=== PATIENT | female | born 1925 | race Caucasian/White ===

== ENCOUNTER 2017-02-17 11:48 | Emergency (ER) | payer OTHER ==
[~2017-02-17] VITALS: Ht 167.6 cm; Wt 54.4 kg
[~2017-02-17 11:48] MED LIST: ASPIRIN81 M4 PO; AZOR 5-20 MG T1 EACH PO; CRESTOR10 M1 PO; DILAUDID2 MG PO; DORZOLAMIDE-TIM10 ML OPH; IBU-DROPS50 MG/1.25 PO; LUMIGAN2.5 ML OPH; METOPROLOL TART50 M1 PO; PERCOCET 5-3251 EACH PO; ZOFRAN 4 MG TABL4 MG PO
--- NOTE | 2017-02-17 12:00 | ED NECK/BACK PAIN COMPLAINT ---
History of Present Illness General Chief Complaint: Low Back Pain/Injury Stated Complaint: BACK PAIN Source: patient, family, old records Exam Limitations: no limitations Vital Signs & Intake/Output Vital Signs & Intake/Output Vital Signs Date Time Temp Pulse Resp B/P B/P Pulse O2 O2 Flow FiO2 Mean Ox Delivery Rate 02/17 1415 88 16 154/78 98 Room Air 02/17 1154 98.6 90 18 172/78 98 Room Air Allergies Coded Allergies: Penicillins (Intermediate, HIVES 04/30/16) Reconcile Medications Amlodipine Bes/Olmesartan Med (Flaquito 5-20 MG Tablet) 1 EACH TABLET 1 TAB PO DAILY HEART (Reported) Aspirin (Aspirin*) 81 MG TAB.CHEW 1 TAB PO [place] (Reported) Bimatoprost (Lumigan) 2.5 ML DROPS 1 GTT OPH QPM EYE (Reported) Dorzolamide HCl/Timolol Maleat (Dorzolamide-Timolol Eye Drops) 10 ML DROPS 1 GTT OPH BID EYE (Reported) Metoprolol Tartrate 50 MG TABLET 1 TAB PO BID HEART (Reported) Oxycodone HCl/Acetaminophen (Percocet 5-325 MG Tablet) 5 MG-325 MG TABLET 1 TAB PO Q6P PRN pain Rosuvastatin Calcium (Crestor) 10 MG TABLET 1 TAB PO DAILY CHOLESTEROL ( Reported) Triage Note: 89 YO FEMALE TO TRIAGE C/O BACK "SPASPMS" STATES SHE HAS HX OF ARTHIRITS. DENIES INJURY TO BACK. STATES SPASPMS STARTED SINCE LAST PM. Triage Nurses Notes Reviewed? yes Onset: Gradual Duration: day(s): (2) Timing: recent history Quality/Severity: moderate Location: T-spine, lumbar spine, paraspinous muscles Radiation: none Method of Injury: old injury Modifying Factors: immobilization, pain medication HPI: Patient is a 89-year-old female with history of back pain presenting to the emergency Department chief complaint of spasms that have been going on for the past 2 days. History of similar symptoms in the past. She reports that whenever this happens she usually comes to the emergency department and the only thing that will help is an injection of morphine. Patient denies any urinary frequency urgency or dysuria. No chest pain palpitations shortness of breath. Denies any upper back pain. No neck pain or jaw pain. Has not been taking anything at home to help with symptoms. Pain is worse with movement. No numbness or tingling. Denies any weakness. (GAIL RHODES) Past History Travel History Traveled to [place] past 21 day No Medical History Any Pertinent Medical History? see below for history Neurological: NONE EENT: NONE Cardiovascular: hypertension, hyperlipidemia, HEART DISEASE DOUBLE BYPASS Respiratory: NONE Gastrointestinal: NONE Hepatic: NONE Renal: NONE Musculoskeletal: chronic back pain, neck/back spasms Psychiatric: NONE Endocrine: NONE Blood Disorders: NONE Cancer(s): NONE HEATING AND VENTILATING WORKER/Reproductive: NONE Surgical History Surgical History: non-contributory Psychosocial History What is your primary language [place] Tobacco Use: Quit >30 days ago Family History Hx Contributory? No (GAIL RHODES) Review of Systems Review of Systems Constitutional: Reports: no symptoms. Comments Review of systems: See HPI, All other systems negative. Constitutional, no chills fever or weight loss HEENT: No visual changes no sore throat no congestion Cardiovascular: No chest pain ,palpitation , orthopnea or ankle swelling Skin, no jaundice no rashes Respiratory: No dyspnea cough sputum or hemoptysis GI: No nausea no vomiting : No dysuria No hematuria Muscle skeletal: no neck pain, Neurologic: No numbness no confusion, no headaches Psych: No stress anxiety or depression,. Heme/endocrine: No bruising no bleeding no polyuria or polydipsia Immunology: No splenectomy or history of AIDS (GAIL RHODES) Physical Exam Physical Exam General Appearance: well developed/nourished, no apparent distress, alert, awake , comfortable Neck: normal inspection, supple, full range of motion Comments: Well-developed well-nourished person in no acute distress HEENT: Normal EENT exam, extraocular motion intact, no nystagmus. Pupils equally round and reactive to light and accommodation. Nose is atraumatic. External auditory canal and Tympanic membranes clear. Pharynx normal. No swelling or edema. Neck: Supple, no lymphadenopathy, normal range of motion without pain or tenderness Back: Tentative palpation over the lumbar and thoracic Wheeler muscles on the left side with positive muscle spasm. Limited range of motion with support flexion secondary to pain. Negative modify straight leg raise bilaterally. Cardiovascular: Regular rate and rhythms , able to appreciate a murmur to auscultation Respiratory: Chest nontender. No respiratory distress.breath sounds clear to auscultation bilaterally Abdomen: Soft, nontender nondistended, no appreciable organomegaly. Normal bowel sounds. No ascites, no rebound or guarding. Extremity: No edema, no calf tenderness to palpation, normal and equal pulses. Muscular strength is 5 out of 5 ML arteries bilaterally. Neuro: Alert oriented x3, motor sensory normal, patellar reflexes are 2+ bilaterally. Skin: No appreciable rash on exposed skin, skin is warm and dry. Psych: Mood and affect is normal, memory and judgment is normal. (GAIL RHODES) Progress Differential Diagnosis: aortic dissection, muscle strain, herniated disc, muscle spasm, contusion, chronic back pain Plan of Care: Patient is stable, symptoms have been ongoing for the past several days. Patient's vitals are stable. No chest pain or shortness of breath. Pain is reproducible with palpation over the lumbar and thoracic spine. Positive muscle spasm. Symptoms likely consistent with exacerbation of chronic back pain and muscle spasms. Patient will be treated in the emergency department with subcutaneous morphine. We will reassessments patient has been medicated. Patient feeling much better after subcutaneous morphine injection. Patient will be discharged rediscussed with Dr. Lowery he agrees with plan. (GAIL RHODES) Departure Departure Time of Disposition: 1357 Disposition: HOME OR SELF CARE Condition: Stable Clinical Impression Primary Impression: Back pain Qualifiers: Back pain location: low back pain Chronicity: chronic Back pain laterality: left Sciatica presence: without sciatica Qualified Codes: M54.5 - Low back pain; G89.29 - Other chronic pain Referrals: RAJ SANTIZO,ALBA Fuentes (PCP/Family) Additional Instructions: Follow-up with your primary care physician this call to make appointment. Return for worsening symptoms or concerns. Take Tylenol [id number] as directed for any pain. Apply warm compresses to affected area. Departure Forms: Customer Survey General Discharge Information (GAIL RHODES) PA/DIRECTOR OF CODING Co-Sign Statement Statement: ED Attending supervision documentation- [] I saw and evaluated the patient. I have also reviewed all the pertinent lab results and diagnostic results. I agree with the findings and the plan of care as documented in the PA's/DIRECTOR OF CODING's documentation. [X] I have reviewed the ED Record and agree with the PA's/DIRECTOR OF CODING's documentation. [] Additions or exceptions (if any) to the PAs/DIRECTOR OF CODING's note and plan are summarized below: [] (BENSON SANTIZO,RONALD Tapia)
[2017-02-17 14:15] VITALS: BP 154/78
== END 2017-02-17 14:14 ==
LOC: ERH 11:48
DX: M54.5 Low back pain (principal); M54.6 Pain in thoracic spine
CPT/HCPCS: 96372